=== PATIENT | female | born 1970 | race Caucasian/White ===

== ENCOUNTER 2018-10-04 21:10 | Emergency (ER) | payer OTHER ==
[~2018-10-04] VITALS: Ht 170.2 cm; Wt 86.0 kg
[2018-10-04 21:24] VITALS: BP 162/97
[2018-10-04] MEDS ORDERED: ketorolac trometh inj. 60 MG/2 ML VIAL IM ONE (23:35)
[2018-10-05] MEDS ORDERED: TRAM50TA2 PO (00:29)
--- NOTE | 2018-10-05 01:02 | NUR ---
her right hand is swollen, she [email or web address] its [email or web address].
== END 2018-10-05 01:27 | disposition home or self-care (01) ==
LOC: ER 21:10
DX: M79.641 Pain in right hand (principal); R22.31 Localized swelling, mass and lump, right upper limb; Z79.899 Other long term (current) drug therapy
CPT/HCPCS: 29125; 73130; 96372; 99283; J1885